=== PATIENT | female | born 1955 | race Caucasian/White ===

== ENCOUNTER 2017-06-20 15:17 | Emergency (ER) | payer MEDICARE, OTHER ==
[~2017-06-20] VITALS: Ht 5451.6 cm; Wt 76.2 kg
[2017-06-20] MEDS ORDERED: DICL50TA8 PO (16:10)
[2017-06-20 16:16] VITALS: BP 145/97
== END 2017-06-20 16:17 | disposition home or self-care (01) ==
LOC: ER 15:17
DX: M54.5 Low back pain (principal); G89.29 Other chronic pain; Z98.890 Other specified postprocedural states
CPT/HCPCS: 99283